=== PATIENT | female | born 2000 | race Caucasian/White ===

== ENCOUNTER 2018-10-16 15:34 | Emergency (ER) | payer OTHER ==
[2018-10-16] MEDS ORDERED: IBUPROFEN 600 MG TAB PO ONE (15:51)
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
[2018-10-16 18:19] VITALS: BP 128/78
== END 2018-10-16 18:18 | disposition home or self-care (01) ==
DX: S89.91XA Unspecified injury of right lower leg, initial encounter (principal); V00.328A Other snow-ski accident, initial encounter; Y93.23 Activity, snow (alpine) (downhill) skiing, snowboarding, sledding, tobogganing and snow tubing; Y92.828 Other wilderness area as the place of occurrence of the external cause; Y99.8 Other external cause status
CPT/HCPCS: L1830